=== PATIENT | male | born 1980 | race Caucasian/White ===

== ENCOUNTER 2016-09-06 12:52 | Emergency (ER) | payer BC, MEDICAID ==
--- NOTE | 2016-09-06 13:27 | EDM.PDOC ---
ED HPI Trauma - General Chief Complaint: Upper Extremity Injury/Pain Stated Complaint: LEFT HAND PAIN, HAD SURGERY 09/03/16 Time Seen by Provider: 09/06/16 12:52 Source: Reports: Patient History Limitations: Reports: No limitations - History of Present Illness INITIAL COMMENTS - FREE TEXT/NARRATIVE: 36 years old w m s/p carpal tunnel surgery last thursday08/06/2016, came to the ed due to severe left wrist pain. Pt used all meds which were prescribed to him and motrin every 6 hours. He did not elevate his left arm and did not apply ice onto his wrist. Pt denies any other acute medical issues at this time. Symptom Onset Date: 09/05/16 Symptom Onset Time: 15:00 Occurred When: yesterday Occurred Where: home Method of Injury: other (s/p surgery) Severity: moderate Pain/Injury Location: Reports: upper extremity, left Consciousness: Reports: no loss of consciousness Associated Symptoms: Reports: denies other symptoms Allergies/ADRs: Allergies cefaclor [From Ceclor] Allergy (Verified 09/06/16 13:05) Hives NSAIDS (Non-Steroidal Anti-Inflamma Allergy (Verified 09/06/16 13:05) Stomach Upset venom-honey bee [bee venom (honey bee)] Allergy (Verified 09/06/16 13:05) Anaphylactic Shock Home Medications: Ambulatory Orders Lisinopril/Hydrochlorothiazide [Lisinopril-Hctz 10-12.5 mg Tab] 1 tab PO BID [Confirmed 09/06/16] Hydrocodone/Acetaminophen [Vicodin 5-300 mg Tablet] 1 each PO Q6HR PRN #16 tablet 05/29/16 [Confirmed 09/06/16] Orphenadrine [Norflex] 100 mg PO BID PRN #20 tab.er 05/29/16 [Confirmed 09/06/16 ] amLODIPine [Norvasc] 5 mg PO BID 05/29/16 [Confirmed 09/06/16] oxyCODONE HCl/Acetaminophen [Percocet 5-325 mg Tablet] 1 each PO Q6HR PRN #12 tablet 09/06/16 Past Medical History - Past Health History Medical/Surgical History: Denies Medical/Surgical History HEENT History: Reports: Impaired vision Cardiovascular History: Reports: Hypertension Respiratory History: Reports: Asthma Gastrointestinal History: Reports: None Genitourinary History: Reports: None Other Musculoskeletal History: should dislocation; DISGENERATIVE DISC DISEASE Neurological History: Reports: Other (see below) Other Neuro History: DEGENERATIVE DISC DISEASE Psychiatric History: Reports: None Endocrine/Metabolic History: Reports: None Hematologic History: Reports: None Immunologic History: Reports: None Oncologic (Cancer) History: Reports: None Dermatologic History: Reports: None - Infectious Disease History Infectious Disease History: Reports: Chicken pox, Influenza - Past Surgical History Head Surgeries/Procedures: Reports: None HEENT Surgical History: Reports: Other (see below) Other HEENT Surgeries/Procedures: PROSTHETIC LENS WHEN 18 YO. Musculoskeletal Surgical History: Reports: Shoulder replacement, Shoulder surgery Social & Family History - Family History Family Medical History: Noncontributory - Tobacco Use Smoking Status *Q: Current Every Day Smoker Years of Tobacco use: 15 Packs/Tins Daily: 1 Used Tobacco, but Quit: No Second Hand Smoke Exposure: Yes - Caffeine Use Caffeine Use: Reports: Coffee, Soda - Alcohol Use Days Per Week of Alcohol Use: 0 - Recreational Drug Use Recreational Drug Use: No Drug Use in Last 12 Months: Yes Recreational Drug Type: Reports: Marijuana/Hashish Recreational Drug Use Frequency: Daily - Living Situation & Occupation Living situation: Reports: Review of Systems - Review of Systems Review Of Systems: See Below Constitutional: Reports: no symptoms Eyes: Reports: no symptoms Ears: Reports: no symptoms Nose: Reports: no symptoms Mouth/Throat: Reports: no symptoms Respiratory: Reports: No Symptoms Cardiovascular: Reports: no symptoms GI/Abdominal: Reports: No symptoms Genitourinary: Reports: no symptoms Musculoskeletal: Reports: joint pain (left wrist) Skin: Reports: no symptoms Neurological: Reports: No Symptoms Psychiatric: Reports: no symptoms Trauma Exam - Physical Exam Exam: See Below Exam Limited By: No limitations General Appearance: Reports: alert, WD/WN, mild distress, obese Head: Reports: atraumatic, normocephalic Eyes: bilateral eye: normal inspection Ears: Reports: normal external exam Nose: Reports: normal inspection, normal mucousa, no blood Throat/Mouth: Reports: Normal inspection, Normal lips, Normal teeth, Normal gums , Normal oropharynx, Normal voice Neck: Reports: non-tender, full range of motion, normal alignment, normal inspection Respiratory Exam: Reports: no respiratory distress, lungs clear, normal breath sounds Cardiovascular: Reports: normal peripheral pulses, regular rate, rhythm, no edema, no gallop, no JVD, no murmur GI/Abdominal: Reports: normal bowel sounds, soft, non tender, no organomegaly (Male) Exam: Deferred Rectal (Males) Exam: Deferred Back: Reports: full range of motion, normal inspection, non-tender Extremities: Reports: no evidence of injury Neurologic: Reports: rope walker II-XII nml as tested, no motor/sensory deficits Skin: Reports: Normal color, Warm/dry, Cyanosis, Other (well healing surgical scar) - [place] Coma Score Best Eye Response (Brock): (4) open spontaneously Best Verbal Response ([place]): (5) oriented Best Motor Response (Brock): (6) obeys commands Brock Total: 15 Course - Vital Signs Text/Narrative:: 36 years old w m s/p carpal tunnel surgery last thursday08/06/2016, came to the ed due to severe left wrist pain. Pt used all meds which were prescribed to him and motrin every 6 hours. He did not elevate his left arm and did not apply ice onto his wrist. Pt denies any other acute medical issues at this time. PE: Left wrist , well healing surgical wound. Mild edema, No loss of function. Impression: Well healing surgical wound. Consultation: Shimon Sotourgeon: Ice, rest, elevation f/u thursday Plan: D/C with instructions. Last Recorded V/S: Last Vital Signs Temp 36.8 C 09/06/16 13:05 Pulse 95 09/06/16 13:05 Resp 16 09/06/16 13:05 BP 156/94 H 09/06/16 13:05 Pulse Ox 97 09/06/16 13:05 Departure - Departure Time of Disposition: 13:32 Disposition: Home, Self-Care 01 Condition: good Clinical Impression: Carpal tunnel syndrome of left wrist Prescriptions: oxyCODONE HCl/Acetaminophen [Percocet 5-325 mg Tablet] 1 each PO Q6HR PRN #12 tablet PRN Reason: severe pain only Referrals: Jose Dos Santos MD [Primary Care Provider] - Forms: ED Department Discharge Additional Instructions: Ice, rest and elevation, please use [place]ling, please take the meds as prescribed , Please take motrin every 6-8 hours, please follow up with the [facility] on thursday, plealena come back to the ed if the symptoms get worse acutely
[2016-09-06 13:30] VITALS: BP 156/94
== END 2016-09-06 13:49 | disposition home or self-care (01) ==
LOC: FB.ED 12:52
DX: G56.02 Carpal tunnel syndrome, left upper limb (principal); I10 Essential (primary) hypertension; J45.909 Unspecified asthma, uncomplicated; F17.210 Nicotine dependence, cigarettes, uncomplicated; Z88.8 Allergy status to other drugs, medicaments and biological substances; Z91.030 Bee allergy status
CPT/HCPCS: 99283

== ENCOUNTER 2016-12-05 14:31 | Emergency (ER) | payer BC, MEDICAID ==
[2016-12-05] MEDS ORDERED: HYDROmorphone 2 MG/ML SDV IM ONE (15:06)
[2016-12-05] MEDS ORDERED: Ondansetron 4 MG Tab.DIS PO SCH (15:15)
[2016-12-05 15:33] VITALS: BP 137/79
--- NOTE | 2016-12-05 16:17 | CT ---
INDICATION: Right flank - mid right side pain x1 month on and off. CT ABDOMEN AND PELVIS WITHOUT CONTRAST: Spiral 1.25-mm axial sections were obtained through the abdomen and pelvis with renal calculus protocol, including sagittal and coronal reconstructions, 12/05/2016. No comparisons were available. Total Exam DLP = 2164.13 mGy-cm. The lower lung garcia and pleural spaces visualized appeared normal. The liver had a normal appearance. The gallbladder is contracted in appearance, compatible with a recent contraction due to a meal - correlate clinically. There is material within the stomach to suggest a recent meal. The common bile duct does not appear enlarged. The adrenal glands appeared normal. The spleen and pancreas appear normal. No evidence of renal calcinosis is noted. No definite renal masses were identified. There is, however, a poorly differentiated area of decreased density in the lower pole of the right kidney. This finding may represent an angiomyolipoma. Contrast CT or MRI may be helpful for further evaluation in that regard. No other renal masses were suggested. No evidence of renal calcinosis or obstructive uropathy was seen, with course and caliber of the ureters appearing normal. The appendix is visualized on axial images #260 through #298 and had a normal appearance. No evidence of appendicitis was seen. No evidence of bowel obstruction was noted. The urinary bladder is almost empty and appeared grossly normal. No intraluminal vesicular calculi were seen. The prostate appeared normal in size. No additional mass lesions, organomegaly, or free fluid collections were identified in the abdomen or pelvis. IMPRESSION: 1. Area of decreased density in the lower pole of the right kidney measuring approximately 22.8 mm. It is low in density and may represent an angiomyolipoma. Ultrasound and, if necessary, contrast-enhanced CT are recommended for further evaluation. 2. No evidence of renal calculi or obstructive uropathy. 3. Contracted gallbladder likely on the basis of recent meal - correlate clinically. No definite calculi are seen, however, ultrasound may be helpful for confirmation, as felt to be clinically necessary. 4. Normal appearing appendix. CT PELVIS: Examination of the pelvis was obtained by CT, as noted above, and revealed no organomegaly, mass lesions, or free fluid collections. No evidence of bowel obstruction was seen. There are a few phleboliths in the lower pelvis. No organomegaly, mass lesions, or free fluid collections were identified in the pelvis. Normal appearing appendix is noted. A minimal calcification is noted in the left iliac artery. IMPRESSION: Essentially normal pelvic CT. Report was called to Dr. Prajapati at 1555 hours, 12/05/2016. [facility]
[2016-12-05] MEDS ORDERED: Iopamidol 755 MG/ML 150 ML Bottle IV ONE (16:26)
[2016-12-05] MEDS ORDERED: Ketorolac 30 MG/ML SDV IVPUSH ONE (16:58)
[2016-12-05] MEDS ORDERED: HYDROmorphone 2 MG/ML SDV IVPUSH ONE (17:44)
[2016-12-05] MEDS ORDERED: Acetaminophen/oxyCODONE 325-5 MG Tab PO ONE (18:43)
--- NOTE | 2016-12-08 09:26 | CT ---
INDICATION: Question pyelonephritis versus cyst lower pole right kidney. CT ABDOMEN AND PELVIS WITH CONTRAST: Spiral 2.5-mm axial sections were obtained through the abdomen and pelvis with 149 mL Isovue-370 at 3 mL per second with sagittal and coronal reconstructions, 12/05/2016, and compared with a non-contrast study of the same date. Total Exam DLP = 1392.94 mGy-cm. The kidneys showed normal uptake of contrast bilaterally with no evidence of obstructive uropathy. At the lower pole of the right kidney, the area of low-density seen on non- contrast CT is compatible with a benign cystic structure measuring approximately 2 cm. No other kidney lesions were identified. The upper abdominal organs were otherwise unremarkable. No organomegaly, mass lesions, or free fluid collections were identified in the abdomen or pelvis. No evidence of bowel obstruction was seen. No evidence of inflammatory process was suggested. The appendix was unremarkable. IMPRESSION: 1. Benign appearing cyst 2 cm lower pole right kidney. No evidence of pyelonephritis noted. 2. CT abdomen and pelvis otherwise unremarkable. CT PELVIS: Examination of the pelvis was obtained by CT, revealing no contrast enhancing pathology. Report was called to Dr. Prajapati at 1732 hours, 12/05/2016. [facility]
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
== END 2016-12-05 18:50 | disposition home or self-care (01) ==
LOC: FB.ED 14:31
DX: M79.1 Myalgia (principal); R07.82 Intercostal pain; M54.6 Pain in thoracic spine; R31.9 Hematuria, unspecified; E66.9 Obesity, unspecified; I10 Essential (primary) hypertension; Z88.1 Allergy status to other antibiotic agents; Z88.8 Allergy status to other drugs, medicaments and biological substances; Z91.030 Bee allergy status; Z98.890 Other specified postprocedural states; Z68.38 Body mass index [BMI] 38.0-38.9, adult
CPT/HCPCS: 36415; 74178; 80053; 81001; 83605; 85025; 86140; 96372; 96374; 96375; 99284; A9270; J1170; J1885; Q9967; 74176; 74177

== ENCOUNTER 2017-03-26 20:29 | Emergency (ER) | payer BC, OTHER ==
[2017-03-26] MEDS ORDERED: HYDROmorphone 2 MG/ML SDV IM ONE (20:44)
[2017-03-26 21:39] VITALS: BP 145/87
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
== END 2017-03-26 21:35 | disposition home or self-care (01) ==
LOC: FB.ED 20:29
DX: S69.92XA Unspecified injury of left wrist, hand and finger(s), initial encounter (principal); V49.9XXA Car occupant (driver) (passenger) injured in unspecified traffic accident, initial encounter
CPT/HCPCS: 73140; 96372; 99283; J1170

== ENCOUNTER 2017-11-06 08:01 | Emergency (ER) | payer SELFPAY ==
[2017-11-06] MEDS: HYDROmorphone 2 MG/ML SDV IM ONE ×2 (09:38→10:42)
[2017-11-06] MEDS: Metoclopramide 10 MG Tab PO ONE (09:39)
[2017-11-06 11:22] VITALS: BP 136/78
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
== END 2017-11-06 12:10 | disposition home or self-care (01) ==
LOC: FB.ED 08:01
DX: M23.92 Unspecified internal derangement of left knee (principal); S86.912A Strain of unspecified muscle(s) and tendon(s) at lower leg level, left leg, initial encounter; F17.200 Nicotine dependence, unspecified, uncomplicated; E66.9 Obesity, unspecified; M54.5 Low back pain; G89.29 Other chronic pain; Z88.8 Allergy status to other drugs, medicaments and biological substances; Z91.030 Bee allergy status; Z98.890 Other specified postprocedural states; X58.XXXA Exposure to other specified factors, initial encounter
CPT/HCPCS: 73562-LT; 73610-LT; 96372; 99283; A9270-GY; J1170

== ENCOUNTER 2017-11-19 01:37 | Emergency (ER) | payer SELFPAY ==
[2017-11-19] MEDS ORDERED: HYDROmorphone 2 MG/ML SDV IVPUSH ONE ×2 (02:02→02:56)
[2017-11-19] MEDS ORDERED: Sodium Chloride 0.9% 1,000 ML IV ONE ×2 (02:02→03:21)
[2017-11-19] MEDS ORDERED: Metoclopramide 10 MG/2 ML SDV IVPUSH ONE (02:03)
[2017-11-19 02:20] VITALS: BP 152/95
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
--- NOTE | 2017-11-23 09:24 | ER ---
DATE SEEN: 11/19/2017 ADDENDUM: Yesterday, when speaking to the patient, there was some concern he may have angiomyolipoma in the kidney, as per previous CT evaluation. This was reviewed with Dr. Simental today, radiologist, and he said this was benign. After further comparison, the structure has a fluid-filled base, so it is only a benign cyst and further studies are not warranted. If he still has persistent pain, of course, he needs to follow up with his doctor. /[id number] CHACHO/KERI
== END 2017-11-19 03:50 | disposition home or self-care (01) ==
LOC: FB.ED 01:37
DX: R10.9 Unspecified abdominal pain (principal); R31.9 Hematuria, unspecified; E66.9 Obesity, unspecified; F17.210 Nicotine dependence, cigarettes, uncomplicated; J45.909 Unspecified asthma, uncomplicated; I10 Essential (primary) hypertension; G21.9 Secondary parkinsonism, unspecified; K30 Functional dyspepsia; M54.2 Cervicalgia; Z68.39 Body mass index [BMI] 39.0-39.9, adult; Z79.890 Hormone replacement therapy; Z91.09 Other allergy status, other than to drugs and biological substances; Z88.1 Allergy status to other antibiotic agents
CPT/HCPCS: 36415; 74176; 80053; 80305; 81001; 85025; 96361; 96374; 96375; 96376; 99284; J1170; J2765; J7030

== ENCOUNTER 2017-11-23 07:36 | Emergency (ER) | payer OTHER ==
--- NOTE | 2017-11-23 07:56 | EDM.PDOC ---
ED HPI GENERAL MEDICAL PROBLEM - General Chief Complaint: Genitourinary Problem Stated Complaint: LEFT KIDNEY PAIN Time Seen by Provider: 11/23/17 07:36 Source of Information: Reports: Patient History Limitations: Reports: No Limitations - History of Present Illness INITIAL COMMENTS - FREE TEXT/NARRATIVE: 37 y.o.w.m came to the ed with left flank pain. Pt was seen here in the ed for same several times when CTs and MRIs were all neg. Pt denied trauma but was requesting Dilaudid. Pt was ambulating fine but holding his "left flank". No N/V /D or any other acute medical issues. BP 154/93 pulse 72 RR 20 Pulse ox 94% on RA temp 36.6 Onset Date: 11/19/17 Onset Time: 07:00 Duration: Day(s): Location: Reports: Back Quality: Reports: Ache Severity: Moderate Improves with: Reports: Cold Therapy, Medication Worsens with: Reports: Movement Associated Symptoms: Reports: Other (left flank pain) Left Back Pain Score (Numeric/FACES): 9 - Related Data Allergies Allergy/AdvReac Type Severity Reaction Status Date / Time cefaclor [From Ceclor] Allergy Hives Verified 11/19/17 02:16 venom-honey bee Allergy Anaphylactic Verified 11/19/17 02:16 [bee venom (honey bee)] Shock NSAIDS (Non-Steroidal AdvReac Stomach Verified 11/19/17 02:16 Anti-Inflamma Upset Home Meds: Home Meds Lisinopril/Hydrochlorothiazide [Lisinopril-Hctz 10-12.5 mg Tab] 1 tab PO DAILY 03/24/16 [History] amLODIPine [Norvasc] 10 mg PO DAILY 05/29/16 [History] Fish Oil/[place]-3 Fatty Acids [Fish Oil 1,000 MG] 500 mg PO BID 11/23/17 [History ] traMADol [Ultram] 50 mg PO Q4H PRN #8 tab 11/23/17 [Rx] Past Medical History - Past Health History Medical/Surgical History: Denies Medical/Surgical History HEENT History: Reports: Impaired Vision Other HEENT History: wears glasses Cardiovascular History: Reports: Hypertension Respiratory History: Reports: Asthma Gastrointestinal History: Reports: None Genitourinary History: Reports: Renal Calculus Other Musculoskeletal History: should dislocation; DISGENERATIVE DISC DISEASE Neurological History: Reports: Other (See Below) Other Neuro History: DEGENERATIVE DISC DISEASE Psychiatric History: Reports: None Endocrine/Metabolic History: Reports: Obesity/BMI 30+ Hematologic History: Reports: None Immunologic History: Reports: None Oncologic (Cancer) History: Reports: None Dermatologic History: Reports: None - Infectious Disease History Infectious Disease History: Reports: Chicken Pox, Influenza - Past Surgical History Head Surgeries/Procedures: Reports: None HEENT Surgical History: Reports: Eye Surgery Other HEENT Surgeries/Procedures: Lens removal et implant as a young kid Musculoskeletal Surgical History: Reports: Carpal Tunnel, Shoulder Replacement, Shoulder Surgery Social & Family History - Family History Family Medical History: Noncontributory - Caffeine Use Caffeine Use: Reports: Coffee, Soda - Living Situation & Occupation Living situation: Reports: ED ROS GENERAL - Review of Systems Review Of Systems: See Below Constitutional: Reports: No Symptoms HEENT: Reports: No Symptoms Respiratory: Reports: No Symptoms Cardiovascular: Reports: No Symptoms Endocrine: Reports: No Symptoms GI/Abdominal: Reports: No Symptoms : Reports: Flank Pain Musculoskeletal: Reports: Back Pain Skin: Reports: No Symptoms Neurological: Reports: No Symptoms Psychiatric: Reports: No Symptoms Hematologic/Lymphatic: Reports: No Symptoms Immunologic: Reports: No Symptoms ED EXAM, RENAL/ - Physical Exam Exam: See Below Exam Limited By: No Limitations General Appearance: Alert, WD/WN, Mild Distress, Obese Eye Exam: Bilateral Eye: Normal Inspection Ears: Normal External Exam Nose: Normal Inspection, Normal Mucosa, No Blood Throat/Mouth: Normal Inspection, Normal Lips Head: Atraumatic, Normocephalic Neck: Normal Inspection, Supple, Non-Tender, Full Range of Motion Respiratory/Chest: No Respiratory Distress, Lungs Clear, Normal Breath Sounds, No Accessory Muscle Use Cardiovascular: Normal Peripheral Pulses, Regular Rate, Rhythm, No Edema, No Gallop, No JVD, No Murmur, No Rub GI/Abdominal: Normal Bowel Sounds, Soft, Non-Tender, No Organomegaly, No Distention, No Abnormal Bruit, No Mass (Male) Exam: Deferred Rectal (Males) Exam: Deferred Back Exam: Normal Inspection, Full Range of Motion Extremities: Normal Inspection, Normal Range of Motion, Non-Tender, No Pedal Edema, Normal Capillary Refill Neurological: Alert, Oriented, CN II-XII Intact, Normal Cognition, Normal Gait, No Motor/Sensory Deficits Psychiatric: Normal Affect, Normal Mood Skin Exam: Warm, Dry, Intact, Normal Color, No Rash Lymphatic: No Adenopathy Course - Vital Signs Text/Narrative:: 37 y.o.w.m came to the ed with left flank pain. Pt was seen here in the ed for same several times when CTs and MRIs were all neg. Pt denied trauma but was requesting Dilaudid. Pt was ambulating fine but holding his "left flank". No N/V /D or any other acute medical issues. BP 154/93 pulse 72 RR 20 Pulse ox 94% on RA temp 36.6 PE: WNWD W M with left flank pain. Nl Staight leg rising test. Imaging: CT Abd/pelvis NEG Labs: UDS pos for benzos and Marijuana. UA pos for micr. hematuria Impressin: Microscopic hematuria. left flank pain Tx: Toradol/ Ice Reexam: Improved 9.18 am Consultation: Dr. Schmidt, will arranges transfer to [facility] Therapist/ urologist Plan: D/C with instructions Last Recorded V/S: Last Vital Signs Temp 36.7 C 11/23/17 08:57 Pulse 61 11/23/17 08:57 Resp 20 11/23/17 08:57 BP 145/92 H 11/23/17 08:57 Pulse Ox 94 L 11/23/17 08:57 - Orders/Labs/Meds Orders: Active Orders 24 hr Category Date Time Status Cooling Warming Measures [RC] ASDIRECTED Care 11/23/17 07:56 Active Abdomen Pelvis wo Cont [CT] Stat Exams 11/23/17 08:27 Taken DRUG SCREEN, URINE ALERE [URCHEM] Stat Lab 11/23/17 08:02 Ordered UA W/MICROSCOPIC [URIN] Stat Lab 11/23/17 08:02 Ordered Ice Therapy [OM.PC] Routine Oth 11/23/17 07:56 Ordered Labs: Laboratory Tests 11/23/17 11/23/17 11/23/17 Range/Units 08:02 08:02 08:13 WBC 6.5 (4.5-12.0) X10-3/uL RBC 5.08 (4.30-5.75) x10(6)uL Hgb 15.9 H (11.5-15.5) g/dL Hct 46.7 (30.0-51.3) % MCV 92.0 (80-96) fL MCH 31.2 (27.7-33.6) pg MCHC 33.9 (32.2-35.4) g/dL RDW 12.3 (11.5-15.5) % Plt Count 194 (125-369) X10(3)uL MPV 7.5 (7.4-10.4) fL Neut % (Auto) 54.0 (46-82) % Lymph % (Auto) 32.1 (13-37) % O'Brien % (Auto) 9.3 (4-12) % Eos % (Auto) 4 (1.0-5.0) % Baso % (Auto) 1 (0-2) % Neut # (Auto) 3.5 (1.6-8.3) # Lymph # (Auto) 2.1 (0.6-5.0) # O'Brien # (Auto) 0.6 (0.0-1.3) # Eos # (Auto) 0.2 (0.0-0.8) # Baso # (Auto) 0.1 (0.0-0.2) # Sodium (135-145) mmol/L Potassium (3.5-5.3) mmol/L Chloride (100-110) mmol/L Carbon Dioxide (21-32) mmol/L BUN (7-18) mg/dL Creatinine (0.70-1.30) mg/dL Est Cr Clr Drug Dosing mL/min Estimated GFR (MDRD) (>60) BUN/Creatinine Ratio (9-20) Glucose (80-116) mg/dL Calcium (8.6-10.2) mg/dL Urine Color Yellow (YELLOW) Urine Appearance Clear (CLEAR) Urine pH 5.0 (5.0-6.5) Ur Specific [place] 1.020 (1.010-1.025) Urine Protein Negative (NEGATIVE) mg/dL Urine Glucose (UA) Normal (NEGATIVE) mg/dL Urine Ketones Negative (NEGATIVE) mg/dL Urine Occult Blood Large H (NEGATIVE) Urine Nitrite Negative (NEGATIVE) Urine Bilirubin Negative (NEGATIVE) Urine Urobilinogen Normal (NEGATIVE) mg/dL Ur Leukocyte Esterase Negative (NEGATIVE) Urine RBC 20-30 H (0) Urine WBC 0-5 (0) Ur Squamous Epith Cells Few H (NS,R,O) Urine Bacteria Few H (NS) Urine Opiates Screen Negative (NEGATIVE) Ur Oxycodone Screen Negative (NEGATIVE) Ur Propoxyphene Screen Negative (NEGATIVE) Ur Barbituates Screen Negative (NEGATIVE) Ur Tricyclics Screen Negative (NEGATIVE) Ur Phencyclidine Scrn Negative (NEGATIVE) Ur Amphetamine Screen Negative (NEGATIVE) Urine MDMA Screen Negative (NEGATIVE) U Benzodiazepines Scrn Positive H (NEGATIVE) U Cocaine Metab Screen Negative (NEGATIVE) U Marijuana (THC) Screen Positive H (NEGATIVE) Ethyl Alcohol (<0.03) % 11/23/17 11/23/17 Range/Units 08:13 08:13 WBC (4.5-12.0) X10-3/uL RBC (4.30-5.75) x10(6)uL Hgb (11.5-15.5) g/dL Hct (30.0-51.3) % MCV (80-96) fL MCH (27.7-33.6) pg MCHC (32.2-35.4) g/dL RDW (11.5-15.5) % Plt Count (125-369) X10(3)uL MPV (7.4-10.4) fL Neut % (Auto) (46-82) % Lymph % (Auto) (13-37) % O'Brien % (Auto) (4-12) % Eos % (Auto) (1.0-5.0) % Baso % (Auto) (0-2) % Neut # (Auto) (1.6-8.3) # Lymph # (Auto) (0.6-5.0) # O'Brien # (Auto) (0.0-1.3) # Eos # (Auto) (0.0-0.8) # Baso # (Auto) (0.0-0.2) # Sodium 138 (135-145) mmol/L Potassium 4.0 (3.5-5.3) mmol/L Chloride 103 (100-110) mmol/L Carbon Dioxide 31 (21-32) mmol/L BUN 13 (7-18) mg/dL Creatinine 1.0 (0.70-1.30) mg/dL Est Cr Clr Drug Dosing 118.73 mL/min Estimated GFR (MDRD) > 60 (>60) BUN/Creatinine Ratio 13.0 (9-20) Glucose 97 (80-116) mg/dL Calcium 8.9 (8.6-10.2) mg/dL Urine Color (YELLOW) Urine Appearance (CLEAR) Urine pH (5.0-6.5) Ur Specific [place] (1.010-1.025) Urine Protein (NEGATIVE) mg/dL Urine Glucose (UA) (NEGATIVE) mg/dL Urine Ketones (NEGATIVE) mg/dL Urine Occult Blood (NEGATIVE) Urine Nitrite (NEGATIVE) Urine Bilirubin (NEGATIVE) Urine Urobilinogen (NEGATIVE) mg/dL Ur Leukocyte Esterase (NEGATIVE) Urine RBC (0) Urine WBC (0) Ur Squamous Epith Cells (NS,R,O) Urine Bacteria (NS) Urine Opiates Screen (NEGATIVE) Ur Oxycodone Screen (NEGATIVE) Ur Propoxyphene Screen (NEGATIVE) Ur Barbituates Screen (NEGATIVE) Ur Tricyclics Screen (NEGATIVE) Ur Phencyclidine Scrn (NEGATIVE) Ur Amphetamine Screen (NEGATIVE) Urine MDMA Screen (NEGATIVE) U Benzodiazepines Scrn (NEGATIVE) U Cocaine Metab Screen (NEGATIVE) U Marijuana (THC) Screen (NEGATIVE) Ethyl Alcohol < 0.03 (<0.03) % Meds: Medications Discontinued Medications Generic Name Dose Route Start Last Admin Trade Name Freq PRN Reason Stop Dose Admin Ketorolac Tromethamine 60 mg 11/23/17 08:25 11/23/17 08:29 Toradol IM 11/23/17 08:26 60 mg ONETIME ONE Administration Departure - Departure Time of Disposition: 09:14 Disposition: Home, Self-Care 01 Condition: Good Clinical Impression: Flank pain Back pain Qualifiers: Back pain location: low back pain Chronicity: unspecified Back pain laterality : left Sciatica presence: without sciatica Qualified Code(s): M54.5 - Low back pain Hematuria Qualifiers: Hematuria type: other microscopic Qualified Code(s): R31.29 - Other microscopic hematuria - Discharge Information Prescriptions: traMADol [Ultram] 50 mg PO Q4H PRN #8 tab PRN Reason: severe pain only Instructions: Tramadol tablets, Back Pain, Adult, Szvd-ys-Lyew, Hematuria, Adult Referrals: Jose Dos Santos MD [Primary Care Provider] - Forms: ED Department Discharge Additional Instructions: Please f/u with your PMD, apply ice to lower back, tylenol/ultram for pain as recommended, [id number] come back if your symptoms get worse acutely - My Orders Last 24 Hours: My Active Orders 11/23/17 07:56 Cooling Warming Measures [RC] ASDIRECTED Ice Therapy [OM.] Routine 11/23/17 08:02 DRUG SCREEN, URINE ALERE [URCHEM] Stat UA W/MICROSCOPIC [URIN] Stat 11/23/17 08:27 Abdomen Pelvis wo Cont [CT] Stat - Assessment/Plan Last 24 Hours: My Active Orders 11/23/17 07:56 Cooling Warming Measures [RC] ASDIRECTED Ice Therapy [OM.PC] Routine 11/23/17 08:02 DRUG SCREEN, URINE ALERE [URCHEM] Stat UA W/MICROSCOPIC [URIN] Stat 11/23/17 08:27 Abdomen Pelvis wo Cont [CT] Stat
[2017-11-23] MEDS ORDERED: Ketorolac 60 MG/2 ML SDV IM ONE (08:25)
[2017-11-23 09:05] VITALS: BP 145/92
== END 2017-11-23 09:26 | disposition home or self-care (01) ==
LOC: FB.ED 07:36
DX: R31.29 Other microscopic hematuria (principal); M54.5 Low back pain; I10 Essential (primary) hypertension; J45.909 Unspecified asthma, uncomplicated; Z88.1 Allergy status to other antibiotic agents; Z91.030 Bee allergy status; Z79.899 Other long term (current) drug therapy; Z88.8 Allergy status to other drugs, medicaments and biological substances; Z87.442 Personal history of urinary calculi
CPT/HCPCS: 36415; 74176; 80048; 80305; 81001; 85025; 96372; 99284; G0480; J1885

== ENCOUNTER 2018-01-22 00:18 | Emergency (ER) | payer OTHER, SELFPAY ==
[2018-01-22] MEDS ORDERED: HYDROmorphone 2 MG/ML SDV IM ONE (00:31)
--- NOTE | 2018-01-22 00:37 | EDM.PDOC ---
ED HPI GENERAL MEDICAL PROBLEM - General Stated Complaint: RT EYE INJURY Time Seen by Provider: 01/22/18 00:20 Source of Information: Reports: Patient - History of Present Illness INITIAL COMMENTS - FREE TEXT/NARRATIVE: Dick complains of right eye pain sudden onset tonight. He complains that he cannot see anything. He has had a previous intraocular lens prostheticc(at age 12),and thinks it may have displaced tonight.. He denies any significant trauma to that eye.He has no nausea or vomiting but feels that the eyes popping out.He has not tried anything to relive the pain Onset: Today - Related Data Allergies Allergy/AdvReac Type Severity Reaction Status Date / Time cefaclor [From Ceclor] Allergy Hives Verified 01/22/18 03:30 codeine Allergy Edema Verified 01/22/18 03:30 venom-honey bee Allergy Anaphylactic Verified 01/22/18 03:30 [bee venom (honey bee)] Shock NSAIDS (Non-Steroidal AdvReac Stomach Verified 01/22/18 03:30 Anti-Inflamma Upset Home Meds: Home Meds Lisinopril/Hydrochlorothiazide [Lisinopril-Hctz 10-12.5 mg Tab] 1 tab PO DAILY 03/24/16 [History] amLODIPine [Norvasc] 10 mg PO DAILY 05/29/16 [History] Fish Oil/[place]-3 Fatty Acids [Fish Oil 1,000 MG] 500 mg PO BID 11/23/17 [History ] Past Medical History - Past Health History Medical/Surgical History: Denies Medical/Surgical History HEENT History: Reports: Impaired Vision Other HEENT History: wears glasses Cardiovascular History: Reports: Hypertension Respiratory History: Reports: Asthma Gastrointestinal History: Reports: None Genitourinary History: Reports: Renal Calculus Other Musculoskeletal History: should dislocation; DISGENERATIVE DISC DISEASE Neurological History: Reports: Other (See Below) Other Neuro History: DEGENERATIVE DISC DISEASE Psychiatric History: Reports: None Endocrine/Metabolic History: Reports: Obesity/BMI 30+ Hematologic History: Reports: None Immunologic History: Reports: None Oncologic (Cancer) History: Reports: None Dermatologic History: Reports: None - Infectious Disease History Infectious Disease History: Reports: Chicken Pox, Influenza - Past Surgical History Head Surgeries/Procedures: Reports: None HEENT Surgical History: Reports: Eye Surgery Other HEENT Surgeries/Procedures: Lens removal et implant as a young kid Musculoskeletal Surgical History: Reports: Carpal Tunnel, Shoulder Replacement, Shoulder Surgery Social & Family History - Family History Family Medical History: Noncontributory - Caffeine Use Caffeine Use: Reports: Coffee, Soda Caffeine Use Comment: 24oz coffee per day and approximately 1 pop per day as well. - Living Situation & Occupation Living situation: Reports: ED ROS GENERAL - Review of Systems Review Of Systems: ROS reveals no pertinent complaints other than HPI. ED EXAM GENERAL W FULL EYE - Physical Exam Exam: See Below Exam Limited By: Uncooperative (Unable to allwo exam due to "pain") General Appearance: Anxious With Correction: Yes Eyelids: Left: Normal Appearance Pupillary Reaction: Right: Brisk Anterior Chamber: Right: Other (Dark irregular body ) Posterior Chamber: Right: Unable to Examine Ears: Normal External Exam, Normal [place] - Vital Signs Text/Narrative:: Dilaudid helped some Last Recorded V/S: Last Vital Signs Temp 97.8 F 01/22/18 00:25 Pulse 81 01/22/18 00:25 Resp 18 01/22/18 00:25 BP 150/86 H 01/22/18 00:25 Pulse Ox 98 01/22/18 00:25 - Orders/Labs/Meds Meds: Medications Discontinued Medications Generic Name Dose Route Start Last Admin Trade Name Chuckie PRN Reason Stop Dose Admin Hydromorphone HCl 2 mg 01/22/18 00:31 01/22/18 00:50 Dilaudid IM 01/22/18 00:32 2 mg ONETIME ONE Administration Departure - Departure Time of Disposition: 00:45 Disposition: Home, Self-Care 01 Clinical Impression: Iritis - Discharge Information Instructions: Hydromorphone injection Referrals: Jose Dos Santos MD [Primary Care Provider] - Forms: ED Department Discharge Care Plan Goals: Follow up with your eye doctor in the morning. - Problem List & Annotations (1) Eye pain SNOMED Code(s): 04858810 Code(s): H57.10 - OCULAR PAIN, UNSPECIFIED EYE Status: Acute Qualifiers: Laterality: right Qualified Code(s): H57.11 - Ocular pain, right eye - Problem List Review Problem List Initiated/Reviewed/Updated: Yes - Assessment/Plan Plan: Dilaudid IM,offered transfer to [place] ED for opthalmology consult,patient admantly declined. DC home,follow with Optometry in AM
[2018-01-22 03:35] VITALS: BP 150/86
== END 2018-01-22 01:05 | disposition home or self-care (01) ==
LOC: FB.ED 00:18
DX: H20.9 Unspecified iridocyclitis (principal); I10 Essential (primary) hypertension; E66.9 Obesity, unspecified; Z88.8 Allergy status to other drugs, medicaments and biological substances; Z91.030 Bee allergy status; Z88.5 Allergy status to narcotic agent; Z79.899 Other long term (current) drug therapy
CPT/HCPCS: 96372; 99282; J1170

== ENCOUNTER 2018-02-15 13:30 | Emergency (ER) | payer SELFPAY ==
--- NOTE | 2018-02-15 13:49 | EDM.PDOC ---
ED HPI GENERAL MEDICAL PROBLEM - General Chief Complaint: Eye Problems Stated Complaint: EYE ISSUE Time Seen by Provider: 02/15/18 13:44 Source of Information: Reports: Patient History Limitations: Reports: No Limitations - History of Present Illness INITIAL COMMENTS - FREE TEXT/NARRATIVE: Patient presents with pain, pressure and redness to right eye since this morning. Status post retinal detachment surgery right eye at [facility] 2 weeks ago. 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 Complains of cough x 2 days. Onset: Today, Sudden Onset Date: 02/15/18 Onset Time: 13:46 Quality: Reports: Ache Severity: Moderate - Related Data Allergies Allergy/AdvReac Type Severity Reaction Status Date / Time cefaclor [From Ceclor] Allergy Hives Verified 01/22/18 03:30 codeine Allergy Edema Verified 01/22/18 03:30 venom-honey bee Allergy Anaphylactic Verified 01/22/18 03:30 [bee venom (honey bee)] Shock NSAIDS (Non-Steroidal AdvReac Stomach Verified 01/22/18 03:30 Anti-Inflamma Upset Home Meds: Home Meds Lisinopril/Hydrochlorothiazide [Lisinopril-Hctz 10-12.5 mg Tab] 1 tab PO DAILY 03/24/16 [History] amLODIPine [Norvasc] 10 mg PO DAILY 05/29/16 [History] Fish Oil/[place]-3 Fatty Acids [Fish Oil 1,000 MG] 500 mg PO BID 11/23/17 [History ] Past Medical History HEENT History: Reports: Impaired Vision Other HEENT History: wears glasses Cardiovascular History: Reports: Hypertension Respiratory History: Reports: Asthma Gastrointestinal History: Reports: None Genitourinary History: Reports: Renal Calculus Other Musculoskeletal History: should dislocation; DISGENERATIVE DISC DISEASE Neurological History: Reports: Other (See Below) Other Neuro History: DEGENERATIVE DISC DISEASE Psychiatric History: Reports: None Endocrine/Metabolic History: Reports: Obesity/BMI 30+ Hematologic History: Reports: None Immunologic History: Reports: None Oncologic (Cancer) History: Reports: None Dermatologic History: Reports: None - Infectious Disease History Infectious Disease History: Reports: Chicken Pox, Influenza - Past Surgical History Head Surgeries/Procedures: Reports: None HEENT Surgical History: Reports: Eye Surgery Other HEENT Surgeries/Procedures: Lens removal et implant as a young kid. Retinal detachment surgery @2 weeks ago. Musculoskeletal Surgical History: Reports: Carpal Tunnel, Shoulder Replacement, Shoulder Surgery Social & Family History - Family History Family Medical History: Noncontributory - Tobacco Use Smoking Status *Q: Current Every Day Smoker Tobacco Use Within Last Twelve Months: Cigarettes - Caffeine Use Caffeine Use: Reports: Coffee, Soda Caffeine Use Comment: 24oz coffee per day and approximately 1 pop per day as well. - Living Situation & Occupation Living situation: Reports: ED ROS GENERAL - Review of Systems Review Of Systems: ROS reveals no pertinent complaints other than HPI. ED EXAM GENERAL W FULL EYE - Physical Exam Exam: See Below Exam Limited By: No Limitations General Appearance: Alert, WD/WN, No Apparent Distress Eye Exam: Right Eye: Conjunctival Injection, Other (irregular, non reactive right pupil), Bilateral Eye: EOMI Eyelids: Bilateral: Normal Appearance Conjunctiva & Sclera: Right: Injected Cornea Exam: Right: Normal Appearance Extraocular Movements: Bilateral: Intact Anterior Chamber: Right: Normal Appearance Posterior Chamber: Bilateral: Unable to Examine Comments: PAT Hernandes not equipped with a slit-lamp or tonometer. Ears: Normal External Exam Nose: Normal Inspection Respiratory/Chest: No Respiratory Distress, Lungs Clear Cardiovascular: Regular Rate, Rhythm, No Murmur Course - Re-Assessments/Exams Free Text/Narrative Re-Assessment/Exam: 02/15/18 13:51 PAT Hernandes not equipped with a slit-lamp or tonometer. Will refer patient to [facility] in [facility]. Clinic contacted and appointment confirmed for @1415 today. Departure - Departure Time of Disposition: 13:52 Disposition: DC/Tfer to Other 70 Condition: Fair Clinical Impression: Acute eye pain - Discharge Information *PRESCRIPTION DRUG MONITORING PROGRAM REVIEWED*: No *COPY OF PRESCRIPTION DRUG MONITORING REPORT IN PATIENT SAM: Not Applicable Instructions: Pain Without a Known Cause Referrals: Jose Dos Santos MD [Primary Care Provider] - Forms: ED Department Discharge Additional Instructions: Follow up at [facility] in [facility] today @1418 for further care.
[2018-02-15 14:09] VITALS: BP 166/90
== END 2018-02-15 13:55 | disposition other institution (70) ==
LOC: FB.ED 13:30
DX: H57.11 Ocular pain, right eye (principal); I10 Essential (primary) hypertension; E66.9 Obesity, unspecified; Z91.030 Bee allergy status; Z88.5 Allergy status to narcotic agent; Z88.8 Allergy status to other drugs, medicaments and biological substances; Z79.899 Other long term (current) drug therapy; F17.210 Nicotine dependence, cigarettes, uncomplicated
CPT/HCPCS: 99281

== ENCOUNTER 2018-06-17 10:56 | Emergency (ER) | payer MEDICAID ==
[2018-06-17] MEDS ORDERED: Hydrochlorothiazide/Lisinopril 12.5-10 MG Tab PO ONE (11:15)
[2018-06-17] MEDS ORDERED: cloNIDine 0.1 MG Tab PO ONE (11:15)
[2018-06-17] MEDS ORDERED: amLODIPine 5 MG Tab PO ONE (11:15)
[2018-06-17] MEDS ORDERED: Ketorolac 60 MG/2 ML SDV IM ONE (11:15)
[2018-06-17] MEDS ORDERED: Ondansetron 4 MG Tab.DIS PO ONE (11:16)
--- NOTE | 2018-06-17 11:27 | EDM.PDOC ---
ED HPI GENERAL MEDICAL PROBLEM - General Chief Complaint: General Stated Complaint: TOOTH PAIN Time Seen by Provider: 06/17/18 11:00 Source of Information: Reports: Patient History Limitations: Reports: No Limitations - History of Present Illness INITIAL COMMENTS - FREE TEXT/NARRATIVE: c/o tooth pain x 2d inc'd pain, says his cheek is swollen this AM altho it appears WNL no fever had N and not able to take his 2 BP meds today, given them here after Zofran ODT 4 mg, along with clonidine 0.1 mg Tooth Pain Score (Numeric/FACES): 8 - Related Data Allergies Allergy/AdvReac Type Severity Reaction Status Date / Time cefaclor [From Ceclor] Allergy Hives Verified 06/17/18 11:02 codeine Allergy Edema Verified 06/17/18 11:02 venom-honey bee Allergy Anaphylactic Verified 06/17/18 11:02 [bee venom (honey bee)] Shock NSAIDS (Non-Steroidal AdvReac Stomach Verified 06/17/18 11:02 Anti-Inflamma Upset Home Meds: Home Meds Lisinopril/Hydrochlorothiazide [Lisinopril-Hctz 10-12.5 mg Tab] 1 tab PO DAILY 03/24/16 [History] amLODIPine [Norvasc] 10 mg PO DAILY 05/29/16 [History] Fish Oil/[place]-3 Fatty Acids [Fish Oil 1,000 MG] 500 mg PO BID 11/23/17 [History ] Azithromycin 250 mg PO DAILY #6 tablet 06/17/18 [Rx] Past Medical History HEENT History: Reports: Impaired Vision Other HEENT History: wears glasses Cardiovascular History: Reports: Hypertension Respiratory History: Reports: Asthma Gastrointestinal History: Reports: None Genitourinary History: Reports: Renal Calculus Other Musculoskeletal History: should dislocation; DISGENERATIVE DISC DISEASE Neurological History: Reports: Other (See Below) Other Neuro History: DEGENERATIVE DISC DISEASE Psychiatric History: Reports: None Endocrine/Metabolic History: Reports: Obesity/BMI 30+ Hematologic History: Reports: None Immunologic History: Reports: None Oncologic (Cancer) History: Reports: None Dermatologic History: Reports: None - Infectious Disease History Infectious Disease History: Reports: Chicken Pox, Influenza - Past Surgical History Head Surgeries/Procedures: Reports: None HEENT Surgical History: Reports: Eye Surgery Other HEENT Surgeries/Procedures: Lens removal et implant as a young kid. Retinal detachment surgery @2 weeks ago. Musculoskeletal Surgical History: Reports: Carpal Tunnel, Shoulder Replacement, Shoulder Surgery Social & Family History - Family History Family Medical History: Noncontributory - Tobacco Use Smoking Status *Q: Current Every Day Smoker Years of Tobacco use: 20 Packs/Tins Daily: 1 - Caffeine Use Caffeine Use: Reports: Coffee, Soda Caffeine Use Comment: 24oz coffee per day and approximately 1 pop per day as well. - Recreational Drug Use Recreational Drug Use: Yes Recreational Drug Type: Reports: Marijuana/Hashish Recreational Drug Use Frequency: Rarely - Living Situation & Occupation Living situation: Reports: ED ROS GENERAL - Review of Systems Review Of Systems: See Below Constitutional: Reports: No Symptoms HEENT: Reports: Dental Pain Respiratory: Reports: No Symptoms Cardiovascular: Reports: No Symptoms Endocrine: Reports: No Symptoms GI/Abdominal: Reports: No Symptoms : Reports: No Symptoms Musculoskeletal: Reports: No Symptoms Skin: Reports: No Symptoms Neurological: Reports: No Symptoms Psychiatric: Reports: No Symptoms Hematologic/Lymphatic: Reports: No Symptoms Immunologic: Reports: No Symptoms ED EXAM, GENERAL - Physical Exam Exam: See Below Exam Limited By: No Limitations General Appearance: Alert, WD/WN, Mild Distress Nose: Normal Inspection, Normal Mucosa, No Blood Throat/Mouth: Other (tooth #13 is deeply eroded, mild tender to touch dorsally, no red or swollen gingiva, no LNs, no STS) Head: Atraumatic, Normocephalic Neck: Normal Inspection, Supple, Non-Tender, Full Range of Motion Course - Vital Signs Last Recorded V/S: Last Vital Signs Temp 36.8 C 06/17/18 11:00 Pulse 82 06/17/18 11:08 Resp 20 06/17/18 11:08 BP 178/107 H 06/17/18 11:08 Pulse Ox 97 06/17/18 11:08 - Orders/Labs/Meds Meds: Medications Discontinued Medications Generic Name Dose Route Start Last Admin Trade Name Freq PRN Reason Stop Dose Admin Amlodipine Besylate 10 mg 06/17/18 11:15 Norvasc PO 06/17/18 11:16 ONETIME ONE Clonidine HCl 0.1 mg 06/17/18 11:15 Catapres PO 06/17/18 11:16 ONETIME ONE Lisinopril/HCTZ 1 tab 06/17/18 11:15 Lisinopril/Hctz 10-12.5 Mg PO 06/17/18 11:16 NOW ONE Ketorolac Tromethamine 60 mg 06/17/18 11:15 Toradol IM 06/17/18 11:16 ONETIME ONE Ondansetron HCl 4 mg 06/17/18 11:16 Zofran Odt PO 06/17/18 11:17 ONETIME ONE Departure - Departure Time of Disposition: 11:22 Disposition: Home, Self-Care 01 Condition: Good Clinical Impression: Pain due to dental caries - Discharge Information *PRESCRIPTION DRUG MONITORING PROGRAM REVIEWED*: Not Applicable *COPY OF PRESCRIPTION DRUG MONITORING REPORT IN PATIENT SAM: Not Applicable Prescriptions: Azithromycin 250 mg PO DAILY #6 tablet Referrals: Jose Dos Santos MD [Primary Care Provider] - Additional Instructions: For infection, take azithromycin 250 mg 2 tabs today, then 1 tab daily for 4 more days. For pain, take ibuprofen 200 mg 3 tabs and acetaminophen 500 mg 2 tabs 4 times a day for 1-2 days. Use ice and cold liquids for 10 minutes every hour. See a dentist as soon as possible. Restart your blood pressure meds. See your doctor in 4 days to recheck your blood pressure and adjust your meds.
[2018-06-17 12:12] VITALS: BP 162/106
== END 2018-06-17 12:09 | disposition home or self-care (01) ==
LOC: FB.ED 10:56
DX: K02.9 Dental caries, unspecified (principal); I10 Essential (primary) hypertension; F17.210 Nicotine dependence, cigarettes, uncomplicated; Z98.890 Other specified postprocedural states; Z88.1 Allergy status to other antibiotic agents; Z88.5 Allergy status to narcotic agent; Z88.8 Allergy status to other drugs, medicaments and biological substances; Z91.030 Bee allergy status
CPT/HCPCS: 96372; 99283; A9270; J1885

== ENCOUNTER 2019-02-05 11:16 | Emergency (ER) | payer MEDICAID ==
--- NOTE | 2019-02-05 11:55 | EDM.PDOC ---
ED HPI GENERAL MEDICAL PROBLEM - General Stated Complaint: QUAD PAIN R SIDE Time Seen by Provider: 02/05/19 11:54 Source of Information: Reports: Patient History Limitations: Reports: No Limitations - History of Present Illness INITIAL COMMENTS - FREE TEXT/NARRATIVE: 38-year-old male who was pushing a truck on of this last week and he felt and heard a pop in his right medial distal thigh. He had some pain in the area initially and the pain has worsened. He states that he fell at the time also jammed his right knee against a rock and he has some pain in his right knee as well but most of the pain is in the distal quadriceps area. He finds that it is difficult to straighten his leg at the knee and he has some spasming and quivering in the right quadriceps muscle. He also finds that it is difficult to walk because he doesn't have any strength in his right thigh muscle. 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 There were no other injuries. He rates the pain as a 7/10. It is a sharp and spasm-type pain. It is worse with movement and with palpation. There is normal sensation in the foot. There are no other associated signs or symptoms. There are no other modifying factors. Onset: Other (3 days ago.) Duration: Getting Worse Location: Reports: Lower Extremity, Right Quality: Reports: Sharp, Other (Spasm-like pain) Severity: Moderate Improves with: Reports: Immobilization, Rest Worsens with: Reports: Other (Activity. 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 R thigh Pain Score (Numeric/FACES): 7 - Related Data Allergies Allergy/AdvReac Type Severity Reaction Status Date / Time cefaclor [From [facility]] Allergy Hives Verified 02/05/19 11:47 codeine Allergy Edema Verified 02/05/19 11:47 venom-honey bee Allergy Anaphylactic Verified 02/05/19 11:47 [bee venom (honey bee)] Shock NSAIDS (Non-Steroidal AdvReac Stomach Verified 02/05/19 11:47 Anti-Inflamma Upset Home Meds: Home Meds Lisinopril/Hydrochlorothiazide [Lisinopril-Hctz 10-12.5 mg Tab] 1 tab PO DAILY 03/24/16 [History] Albuterol Sulfate [Albuterol Sulfate Hfa] 2 puff IH Q4H PRN 02/05/19 [History] Gabapentin [Neurontin] 600 mg TID 02/05/19 [History] Hydrocodone/Acetaminophen [[place] 5-325 Tablet] 1 - 2 tab PO Q6H PRN #10 tablet 02/05/19 [Rx] Sildenafil Citrate 3 - 5 tab ASDIRECTED 02/05/19 [History] Past Medical History HEENT History: Reports: Impaired Vision Other HEENT History: wears glasses Cardiovascular History: Reports: Hypertension Respiratory History: Reports: Asthma Genitourinary History: Reports: Renal Calculus Neurological History: Reports: Other (See Below) Other Neuro History: DEGENERATIVE DISC DISEASE Endocrine/Metabolic History: Reports: Obesity/BMI 30+ - Infectious Disease History Infectious Disease History: Reports: Chicken Pox, Influenza - Past Surgical History HEENT Surgical History: Reports: Eye Surgery Other HEENT Surgeries/Procedures: Lens removal et implant as a young kid. Retinal detachment surgery @2 weeks ago. Musculoskeletal Surgical History: Reports: Carpal Tunnel, Shoulder Replacement, Shoulder Surgery Social & Family History - Tobacco Use Smoking Status *Q: Current Every Day Smoker - Caffeine Use Caffeine Use: Reports: Coffee, Soda Caffeine Use Comment: 24oz coffee per day and approximately 1 pop per day as well. 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.) ED ROS GENERAL - Review of Systems Review Of Systems: See Below Constitutional: Reports: No Symptoms HEENT: Reports: No Symptoms Respiratory: Reports: No Symptoms Cardiovascular: Reports: No Symptoms Endocrine: Reports: No Symptoms GI/Abdominal: Reports: No Symptoms : Reports: No Symptoms Musculoskeletal: Reports: Muscle Pain (Right thigh under sups), Other (Right knee pain) Skin: Reports: No Symptoms Neurological: Reports: No Symptoms Hematologic/Lymphatic: Reports: No Symptoms Immunologic: Reports: No Symptoms ED EXAM, GENERAL - Physical Exam Exam: See Below Exam Limited By: No Limitations General Appearance: Alert, WD/WN, Mild Distress (Pain) Eye Exam: Bilateral Eye: EOMI, Normal Inspection, PERRL Ears: Normal External Exam, Hearing Grossly Normal Ear Exam: Bilateral Ear: Auricle Normal Nose: Normal Inspection, Normal Mucosa, No Blood Throat/Mouth: Normal Oropharynx, Normal Voice, No Airway Compromise Head: Atraumatic, Normocephalic Neck: Normal Inspection, Supple, Non-Tender, Full Range of Motion Respiratory/Chest: No Respiratory Distress, Lungs Clear, Normal Breath Sounds, No Accessory Muscle Use, Chest Non-Tender Cardiovascular: Normal Peripheral Pulses, Regular Rate, Rhythm, No Murmur Peripheral Pulses: 2+: Radial (L), Radial (R), Dorsalis Pedis (L), Dorsalis Pedis (R) GI/Abdominal: Normal Bowel Sounds, Soft, Non-Tender, No Mass Back Exam: Normal Inspection Extremities: No Pedal Edema, Normal Capillary Refill, Other (Tender over the right medial distal quadriceps area. There does seem to be some dip and the muscle in this area with tensing of the muscle. Is able to straighten his right leg at the knee but with difficulty. No crepitus or bony deformity noted and no ligamentous laxity noted in the knee) Neurological: Alert, Oriented, CN II-XII Intact, Normal Cognition, No Motor/ Sensory Deficits Skin Exam: Warm, Dry, Intact, Normal Color, No Rash Course - Vital Signs Last Recorded V/S: Last Vital Signs Temp 36.4 C 02/05/19 11:35 Pulse 79 02/05/19 11:35 Resp 18 02/05/19 11:35 BP 186/105 H 02/05/19 11:35 Pulse Ox 98 02/05/19 11:35 - Orders/Labs/Meds Orders: Active Orders 24 hr Category Date Time Status Femur Min 2V Rt [CR] Stat Exams 02/05/19 12:05 Taken Knee 1V or 2V Rt [CR] Stat Exams 02/05/19 12:05 Taken Meds: Medications Discontinued Medications Generic Name Dose Route Start Last Admin Trade Name Freq PRN Reason Stop Dose Admin Hydrocodone Bitart/Acetaminophen 2 tab 02/05/19 12:07 02/05/19 12:56 [place] 325-5 Mg PO 02/05/19 12:08 2 tab ONETIME ONE Administration - Radiology Interpretation Free Text/Narrative:: Right knee x-ray reveals no fracture or malalignment. Right femur x-ray reveals no fracture or malalignment. - Re-Assessments/Exams Free Text/Narrative Re-Assessment/Exam: 02/05/19 13:23: The patient's x-rays were negative. His exam and history insistent with a partial quadriceps muscle tear of the right thigh. I will place the patient in a knee immobilizer and he is being referred to Dr. Noe Andre, orthopedist at [facility]. They will call him with an appointment time. 02/05/19 13:31: The patient did not feel comfortable with the knee immobilizer in place. I recommended crutches and he refused to use those as well. We will place him in an Idris wrap and I have told him to limit walking. He should apply ice packs intermittently to the quadriceps area. I did give him a small prescription of pain medications. Departure - Departure Time of Disposition: 13:35 Disposition: Home, Self-Care 01 Condition: Good Clinical Impression: Contusion of right knee, initial encounter Quadriceps muscle rupture Qualifiers: Encounter type: initial encounter Laterality: right Qualified Code(s): S76.111A - Strain of right quadriceps muscle, fascia and tendon, initial encounter - Discharge Information Prescriptions: Hydrocodone/Acetaminophen [[place] 5-325 Tablet] 1 - 2 tab PO Q6H PRN #10 tablet PRN Reason: Moderate to severe pain Instructions: Pain Medicine Instructions, [id number], Quadriceps Strain, Contusion, [id number] Referrals: Jose Dos Santos MD [Primary Care Provider] - Noe Andre DO [Physician] - Forms: ED Return to Work/School Form Additional Instructions: You appear to have a tear to part of the quadriceps muscle of your right thigh. You should apply ice packs intermittently to this area for the next few days. I did recommend that you use crutches with no weightbearing on your right leg but he refused these. You should try to avoid any walking or use of your right leg until you have seen Dr. Andre. Their office should call you with an appointment sometime next week. Medication as prescribed for more severe pain (hydrocodone 5 /325). Sedentary work only until cleared by Dr. Andre. Back to the emergency department for fever, redness or any other concerning sign or symptom. - My Orders Last 24 Hours: My Active Orders 02/05/19 12:05 Femur Min 2V Rt [CR] Stat Knee 1V or 2V Rt [CR] Stat - Assessment/Plan Last 24 Hours: My Active Orders 02/05/19 12:05 Femur Min 2V Rt [CR] Stat Knee 1V or 2V Rt [CR] Stat
[2019-02-05] MEDS ORDERED: Acetaminophen/HYDROcodone 325-5 MG Tab PO ONE (12:07)
[2019-02-05 13:51] VITALS: BP 189/123
--- NOTE | 2019-02-07 11:51 | CR ---
INDICATION: Right knee pain, status post injury. RIGHT KNEE: Three views of the right knee revealed minimal degenerative change at the lateral intercondylar spine. There is prominence at the suprapatellar bursa, suggesting a knee joint effusion. No other bone or joint abnormality was suggested - no acute fracture or dislocation was seen. If internal derangement is suspected clinically, additional examination such as MRI may be helpful. MTDD
--- NOTE | 2019-02-07 11:52 | CR ---
INDICATION: Right thigh pain, status post injury. RIGHT FEMUR: Five images of the right femur in frontal and lateral projections revealed degenerative changes and possible knee joint effusion, as noted previously. The right femur was otherwise unremarkable - the hip joint appears to be fairly intact. Essentially normal bone density is noted. A small sclerotic density at the greater trochanter most likely represents a minimal benign bone island. IMPRESSION: No acute fracture or dislocation. There is suggestion of a knee joint effusion seen on knee x-ray also. MTDD
== END 2019-02-05 13:48 | disposition home or self-care (01) ==
LOC: FB.ED 11:16
DX: S80.01XA Contusion of right knee, initial encounter (principal); S76.111A Strain of right quadriceps muscle, fascia and tendon, initial encounter; I10 Essential (primary) hypertension; Z79.899 Other long term (current) drug therapy; Z88.1 Allergy status to other antibiotic agents; Z88.5 Allergy status to narcotic agent; Z91.030 Bee allergy status; Z88.8 Allergy status to other drugs, medicaments and biological substances; X58.XXXA Exposure to other specified factors, initial encounter
CPT/HCPCS: 73552; 73560; 99283; A9270

== ENCOUNTER 2019-03-17 06:45 | Day surgery (SDC) | payer MEDICAID ==
[~2019-03-17 06:45] MED LIST: Acetaminophen 500 MG Tab PO ONE; Gabapentin 300 MG Cap PO ONE; Lactated Ringers 1,000 ML IV SCH; Sodium Chloride 0.9% 10 ML Syringe FLUSH PRN
[2019-03-17] MEDS ORDERED: Rocuronium 50 MG/5 ML Vial IV ONE (06:46)
[2019-03-17] MEDS ORDERED: HYDROmorphone 2 MG/ML SDV IV ONE (06:46)
[2019-03-17] MEDS ORDERED: Lactated Ringers 1,000 ML IV ONE (06:46)
[2019-03-17] MEDS ORDERED: Propofol 200 MG/20 ML SDV IV ONE (06:46)
[2019-03-17] MEDS ORDERED: fentaNYL 100 MCG/2 ML SDV IV ONE (06:46)
[2019-03-17] MEDS ORDERED: Lidocaine 2% 100 MG/5 ML Syringe IVPUSH ONE (06:46)
[2019-03-17] MEDS ORDERED: Ketorolac 30 MG/ML SDV IVPUSH ONE ×2 (06:46→09:46)
[2019-03-17] MEDS ORDERED: Dexamethasone 4 MG/ML 5 ML MDV IVPUSH ONE (06:46)
[2019-03-17] MEDS ORDERED: Midazolam 1 MG/ML 2 ML SDV IV ONE (06:46)
[2019-03-17] MEDS ORDERED: Albuterol/Ipratropium 3.0-0.5 MG/3 ML Neb Soln NEB PRN (07:31)
[2019-03-17] MEDS ORDERED: Clindamycin in 0.9 % Sod Chlor 900 MG/50 ML BAG IV ONE (08:00)
[2019-03-17] MEDS ORDERED: Clindamycin Phosphate 900 MG in Sodium Chloride 0.9% 100 ML IV ONE (08:00)
[2019-03-17] MEDS ORDERED: Gentamicin 40 MG/ML 2 ML Vial ONE (08:37)
[2019-03-17] MEDS ORDERED: EPINEPHrine 1 MG/ML SDV ONE (08:37)
[2019-03-17] MEDS ORDERED: Bupivacaine 0.5%/EPINEPHrine 1:200,000 50 ML MDV INJECT ONE (08:38)
[2019-03-17] MEDS ORDERED: Acetaminophen/oxyCODONE 325-5 MG Tab PO ONE (09:46)
--- NOTE | 2019-03-17 10:44 | PCM.OPNOTE ---
- General Post-Op/Procedure Note Date of Surgery/Procedure: 03/17/19 Operative Procedure(s): right knee arthroscopy. partial medial menisectomy. medial plice resection Pre Op Diagnosis: right medial meniscus tear Post-Op Diagnosis: Same Anesthesia Technique: General ET Tube Primary Surgeon: Noe Andre Anesthesia Provider: Jose Quispe EBL in mLs: 5 Complications: None Condition: Good
[2019-03-17 15:27] VITALS: BP 160/97; PULSE 84
--- NOTE | 2019-03-17 17:12 | OR ---
DATE OF OPERATION: 03/17/2019 SURGEON: Noe Andre DO PREOPERATIVE DIAGNOSIS: Right medial meniscus tear. POSTOPERATIVE DIAGNOSIS: Right medial meniscus tear and medial plica. PROCEDURE: Right knee arthroscopy with partial medial meniscectomy and medial plica resection. ANESTHESIA: General endotracheal intubation. FLUID: Lactated Ringer solution. ESTIMATED BLOOD LOSS: 5 mL. COMPLICATIONS: None. SPECIMEN: None. DISCHARGE DISPOSITION: Stable to PACU. HISTORY AND INDICATIONS FOR THE PROCEDURE: The patient is seen preoperatively in the clinic. We tried extensive nonoperative treatment including injections and topicals as well as anti-inflammatories, but he was not getting any better. Preoperative imaging confirmed the above-mentioned diagnosis. Risks and benefits of the procedure explained to the patient. Informed consent was obtained. DETAILS OF PROCEDURE: The patient was seen preoperatively by myself and Anesthesia staff in the preoperative holding area where the operative site was marked. He was brought to the operative suite by Anesthesia staff where general anesthesia was administered. His left lower extremity was placed into a stirrup. His right lower extremity was placed into a hip crandall. All extremities were found to be well padded. A well-padded tourniquet was placed on the right thigh. The right lower extremity was then prepped and draped in a sterile manner. Time-out was called identifying the correct patient, correct procedure, and the correct site and antibiotics begun within appropriate period of time. The right lower extremity was then exsanguinated. Tourniquet was raised to 300 mmHg. Lateral portal was then made and then the trocar was used to enter the joint and then the knee was extended going into the patellofemoral space. The camera was then inserted. I inspected the patella, which appeared to be in good condition as well as the trochlea. Lateral and medial gutters were clear except that the medial gutter had a large plica. I then focused on the medial and lateral compartments. I did use a shaver through the lateral portal that was placed to remove some infrapatellar fat pad for visualization. The lateral meniscus had no abnormalities. The medial meniscus had a posterior tear. ACL was in good condition. The medial meniscus was then shaved and then stabilized using cautery. I then extended the knee again and then resected the medial plica with a shaver. After our goals were accomplished, we then removed our instruments from the knee and then injected local anesthetic, placed two 3-0 [id number] nylon sutures, and then the portals had Betadine-soaked Adaptic placed over them, sterile sponges and then an Idris wrap. The patient had the tourniquet let down. He was allowed to awaken from general anesthesia and taken to the PACU in stable condition. /[id number] BS/KERI
== END 2019-03-17 10:45 | disposition home or self-care (01) ==
LOC: FB.SDS 06:45
PROVIDERS: ATTEND Orthopaedic Surgery
DX: S83.241A Other tear of medial meniscus, current injury, right knee, initial encounter (principal); M67.51 Plica syndrome, right knee; I10 Essential (primary) hypertension; J45.909 Unspecified asthma, uncomplicated; F17.210 Nicotine dependence, cigarettes, uncomplicated; F41.9 Anxiety disorder, unspecified; K21.9 Gastro-esophageal reflux disease without esophagitis; E66.9 Obesity, unspecified; X58.XXXA Exposure to other specified factors, initial encounter; Z88.1 Allergy status to other antibiotic agents; Z88.5 Allergy status to narcotic agent; Z88.6 Allergy status to analgesic agent; Z91.030 Bee allergy status; Z68.41 Body mass index [BMI] 40.0-44.9, adult; Z79.82 Long term (current) use of aspirin; Z79.899 Other long term (current) drug therapy
CPT/HCPCS: 29881; 94150; A9270; J0171; J1100; J1170; J1580; J1885; J2001; J2250; J2704; J3010; J3490; J7120; J7620-GY

== ENCOUNTER 2020-03-09 07:53 | Emergency (ER) | payer MEDICAID ==
[2020-03-09] MEDS ORDERED: Clindamycin HCl 150 MG Cap PO ONE ×2 (08:37→08:38)
--- NOTE | 2020-03-09 08:40 | EDM.PDOC ---
ED HPI GENERAL MEDICAL PROBLEM - General Stated Complaint: TOOTH INFECTION Time Seen by Provider: 03/09/20 08:20 Source of Information: Reports: Patient History Limitations: Reports: No Limitations - History of Present Illness INITIAL COMMENTS - FREE TEXT/NARRATIVE: c/o dental pain declined Toradol here pain at tooth ##28 x 1w, tooth cracked last night and pain inc'd he packed tooth with temporary filler that did not help works at [employer], needs a note for work today says he "just needs an antibx" plans to see dentist in 2w, has dental insurance, needs to get together the money for the copay [facility] neg - Related Data Allergies Allergy/AdvReac Type Severity Reaction Status Date / Time cefaclor [From Ceclor] Allergy Hives Verified 02/05/19 11:47 venom-honey bee Allergy Anaphylactic Verified 02/05/19 11:47 [bee venom (honey bee)] Shock Home Meds: Home Meds Albuterol Sulfate [Albuterol Sulfate Hfa] 2 puff IH Q4H PRN 02/05/19 [History] Gabapentin [Neurontin] 600 mg PO TID PRN 02/05/19 [History] Sildenafil Citrate 3 - 5 tab ASDIRECTED 02/05/19 [History] amLODIPine Besylate [Norvasc] 10 mg PO DAILY 02/05/19 [History] EPINEPHrine [Auvi-Q] 0.3 mg IJ ASDIRECTED PRN 03/16/19 [History] Lisinopril/Hydrochlorothiazide [Lisinopril-Hctz 20-25 mg Tab] 1 ea PO DAILY 03/16/19 [History] hydrOXYzine HCL [Atarax] 25 mg PO BEDTIME 03/16/19 [History] Acetaminophen/oxyCODONE [Percocet 325-5 MG] 1 each PO TID #21 tab 03/17/19 [Rx] Gabapentin [Neurontin] 300 mg PO TID #42 cap 03/17/19 [Rx] Lidocaine 2% [Xylocaine 2% Viscous] 30 ml PO ASDIRECTED #1 cup 03/09/20 [Rx] clindamycin HCL [Cleocin HCl] 300 mg PO TID #21 capsule 03/09/20 [Rx] Past Medical History - Past Health History Medical/Surgical History: Denies Medical/Surgical History HEENT History: Reports: Impaired Vision Other HEENT History: wears glasses Cardiovascular History: Reports: Hypertension Respiratory History: Reports: Asthma, Bronchitis, Recurrent Gastrointestinal History: Reports: None Genitourinary History: Reports: Renal Calculus Musculoskeletal History: Reports: Fracture, Neck Pain, Chronic Other Musculoskeletal History: should dislocation; DISGENERATIVE DISC DISEASE, bulging disc in neck,m hx fx fingers, toes, R wrist, skull fx Neurological History: Reports: Headaches, Chronic, Other (See Below) Other Neuro History: DEGENERATIVE DISC DISEASE Psychiatric History: Reports: None, Anxiety Endocrine/Metabolic History: Reports: Obesity/BMI 30+ Hematologic History: Reports: None Immunologic History: Reports: None Oncologic (Cancer) History: Reports: None Dermatologic History: Reports: None - Infectious Disease History Infectious Disease History: Reports: Chicken Pox, Influenza - Past Surgical History Head Surgeries/Procedures: Reports: None HEENT Surgical History: Reports: Cataract Surgery, Eye Surgery Other HEENT Surgeries/Procedures: Lens removal et implant as a young kid. Retinal detachment surgery @2 weeks ago. Musculoskeletal Surgical History: Reports: Carpal Tunnel, Shoulder Replacement, Shoulder Surgery Other Musculoskeletal Surgeries/Procedures:: LEFT SHOULDER SURGERY Social & Family History - Family History Family Medical History: Noncontributory - Caffeine Use Caffeine Use: Reports: Coffee Caffeine Use Comment: 24oz coffee per day and approximately 1 pop per day as well. 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.) ED ROS ENT - Review of Systems Review Of Systems: See Below Constitutional: Reports: No Symptoms HEENT: Reports: Other (dental pain) Respiratory: Reports: No Symptoms Endocrine: Reports: No Symptoms GI/Abdominal: Reports: No Symptoms : Reports: No Symptoms Musculoskeletal: Reports: No Symptoms Skin: Reports: No Symptoms Neurological: Reports: No Symptoms Psychiatric: Reports: No Symptoms Hematologic/Lymphatic: Reports: No Symptoms Immunologic: Reports: No Symptoms ED EXAM, ENT - Physical Exam Exam: See Below Exam Limited By: No Limitations General Appearance: Alert, WD/WN, Mild Distress Ears: Normal External Exam, Hearing Grossly Normal Nose: Normal Inspection, Normal Mucousa, No Blood Mouth/Throat: Other (tooth #38 is deeply cracked in middle, white filling noted, gum not red/swollen, mild mandible pain, tooth painful to touch, no cervical LNs) Head: Atraumatic, Normocephalic Neck: Normal Inspection, Supple, Non-Tender, Full Range of Motion. No: Lymphadenopathy (R), Lymphadenopathy (L) Respiratory/Chest: No Respiratory Distress Cardiovascular: Regular Rate, Rhythm Course - Re-Assessments/Exams Free Text/Narrative Re-Assessment/Exam: 03/09/20 08:47 poor dentition with multiple caries, pt has had teeth pulled in past, plans to have multiple teeth pulled this time Departure - Departure Time of Disposition: 08:35 Disposition: Home, Self-Care 01 Condition: Good Clinical Impression: Pain due to dental caries, Dental abscess - Discharge Information *PRESCRIPTION DRUG MONITORING PROGRAM REVIEWED*: Yes *COPY OF PRESCRIPTION DRUG MONITORING REPORT IN PATIENT SAM: No Prescriptions: clindamycin HCL [Cleocin HCl] 300 mg PO TID #21 capsule Lidocaine 2% [Xylocaine 2% Viscous] 30 ml PO ASDIRECTED #1 cup Instructions: Dental Abscess Referrals: Jose Dos Santos MD [Primary Care Provider] - Forms: ED Return to Work/School Form Additional Instructions: For infection, take clindamycin 300 mg 1 capsule 3 times a day for 7 days. For pain, put a thin layer of 2% viscous lidocaine on a cotton ball and bite down every hour as needed. For pain, take ibuprofen 200 mg 3 tabs and acetaminophen 500 mg 2 tabs 4 times a day for 2 days, longer if possible. Use ice pack to mandible for 10 minutes every hour as needed. Drink cold liquids, eat cool and soft food, chew on the opposite side. See a dentist as soon as possible. No work today.
[2020-03-09 09:08] VITALS: BP 134/74; PULSE 75
== END 2020-03-09 08:48 | disposition home or self-care (01) ==
LOC: FB.ED 07:53
DX: K04.7 Periapical abscess without sinus (principal); K02.9 Dental caries, unspecified; I10 Essential (primary) hypertension; J45.909 Unspecified asthma, uncomplicated; E66.9 Obesity, unspecified; Z88.1 Allergy status to other antibiotic agents; Z91.030 Bee allergy status; Z68.41 Body mass index [BMI] 40.0-44.9, adult
CPT/HCPCS: 99282; A9270

== ENCOUNTER 2020-05-07 08:57 | Emergency (ER) | payer MEDICAID ==
[2020-05-07] MEDS ORDERED: Ketorolac 60 MG/2 ML SDV IM ONE (09:22)
[2020-05-07] MEDS ORDERED: methylPREDNISolone Sodium Succinate 125 MG/2 ML SDV IM ONE (09:22)
--- NOTE | 2020-05-07 09:39 | EDM.PDOC ---
ED HPI GENERAL MEDICAL PROBLEM - General Stated Complaint: LT SHOULDER PAIN Time Seen by Provider: 05/07/20 09:05 Source of Information: Reports: Patient History Limitations: Reports: No Limitations - History of Present Illness INITIAL COMMENTS - FREE TEXT/NARRATIVE: pt with left shoulder replaced 6 yrs ago in the last 4-5 days has worsening pain , shooting from the lower shoulder to the arm states about 7-10 denies new injury but states he always lifts heavy things that could have triggered the pain denies any numbness or tingling in the fingers( had carpal tunnel release) limited ROM due to pain thinks it is deep bone pain but denies any trauma to the area Onset: Gradual Onset Date: 05/02/20 Duration: Day(s): (4), Getting Worse, Waxing/Waning Location: Reports: Upper Extremity, Left (left shoulder) Quality: Reports: Ache, Dull Severity: Moderate Improves with: Reports: Immobilization Worsens with: Reports: Movement Context: Reports: Activity, Other (heavy lifting ) Left Shoulder Pain Score (Numeric/FACES): 7 - Related Data Allergies Allergy/AdvReac Type Severity Reaction Status Date / Time [facility]lor [[facility] Allergy Hives Verified 05/07/20 09:12 venom-honey bee Allergy Anaphylactic Verified 05/07/20 09:12 [bee venom (honey bee)] Shock Home Meds: Home Meds Albuterol Sulfate [Albuterol Sulfate Hfa] 2 puff IH Q4H PRN 02/05/19 [History] Sildenafil Citrate 3 - 5 tab ASDIRECTED 02/05/19 [History] amLODIPine Besylate [Norvasc] 10 mg PO DAILY 02/05/19 [History] EPINEPHrine [Auvi-Q] 0.3 mg IJ ASDIRECTED PRN 03/16/19 [History] Lisinopril/Hydrochlorothiazide [Lisinopril-Hctz 20-25 mg Tab] 1 ea PO DAILY 03/16/19 [History] hydrOXYzine HCL [Atarax] 25 mg PO BEDTIME 03/16/19 [History] Meloxicam 15 mg PO DAILY #30 tablet 05/07/20 [Rx] Metoprolol Succinate [Toprol XL 50mg] 50 mg PO DAILY 05/07/20 [History] traMADol HCl [Tramadol HCl] 50 mg PO Q6H PRN #10 tablet 05/07/20 [Rx] Past Medical History - Past Health History Medical/Surgical History: Denies Medical/Surgical History HEENT History: Reports: Impaired Vision Other HEENT History: wears glasses Cardiovascular History: Reports: Hypertension Respiratory History: Reports: Asthma, Bronchitis, Recurrent Gastrointestinal History: Reports: None Genitourinary History: Reports: Renal Calculus Musculoskeletal History: Reports: Fracture, Neck Pain, Chronic Other Musculoskeletal History: should dislocation; DISGENERATIVE DISC DISEASE, bulging disc in neck,m hx fx fingers, toes, R wrist, skull fx Neurological History: Reports: Headaches, Chronic, Other (See Below) Other Neuro History: DEGENERATIVE DISC DISEASE Psychiatric History: Reports: None, Anxiety Endocrine/Metabolic History: Reports: Obesity/BMI 30+ Hematologic History: Reports: None Immunologic History: Reports: None Oncologic (Cancer) History: Reports: None Dermatologic History: Reports: None - Infectious Disease History Infectious Disease History: Reports: Chicken Pox - Past Surgical History Head Surgeries/Procedures: Reports: None HEENT Surgical History: Reports: Cataract Surgery, Eye Surgery Other HEENT Surgeries/Procedures: Lens removal et implant as a young kid. Retinal detachment surgery Musculoskeletal Surgical History: Reports: Carpal Tunnel, Shoulder Replacement, Shoulder Surgery Other Musculoskeletal Surgeries/Procedures:: LEFT SHOULDER SURGERY Social & Family History - Family History Family Medical History: No Pertinent Family History - Caffeine Use Caffeine Use: Reports: Coffee Caffeine Use Comment: 24oz coffee per day and approximately 1 pop per day as well. 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 Denies: Numbness, Tingling Psychiatric: Reports: No Symptoms ED EXAM, GENERAL - Physical Exam Exam: See Below Exam Limited By: No Limitations General Appearance: Alert, WD/WN, No Apparent Distress Ears: Normal External Exam Nose: Normal Inspection Throat/Mouth: Normal Oropharynx Head: Atraumatic, Normocephalic Neck: Supple, Non-Tender Respiratory/Chest: No Respiratory Distress, Lungs Clear Cardiovascular: Regular Rate, Rhythm GI/Abdominal: Soft, Non-Tender Back Exam: Normal Inspection, Full Range of Motion Extremities: Arm Pain, Limited Range of Motion (left shoulder). No: Joint Swelling, Increased Warmth, Redness Neurological: Alert, Oriented, CN II-XII Intact Psychiatric: Normal Affect Skin Exam: Warm Course - Vital Signs Last Recorded V/S: Last Vital Signs Temp 36.2 C 05/07/20 09:22 Pulse 70 05/07/20 09:22 Resp 16 05/07/20 09:22 BP 144/86 H 05/07/20 09:22 Pulse Ox 98 05/07/20 09:22 - Orders/Labs/Meds Meds: Medications Discontinued Medications Generic Name Dose Route Start Last Admin Trade Name Freq PRN Reason Stop Dose Admin Ketorolac Tromethamine 60 mg 05/07/20 09:22 Toradol IM 05/07/20 09:23 ONETIME ONE Methylprednisolone Sodium Succinate 125 mg 05/07/20 09:22 05/07/20 09:53 Solu-Medrol IM 05/07/20 09:23 125 mg ONETIME ONE Administration Departure - Departure Time of Disposition: 10:35 Disposition: Home, Self-Care 01 Condition: Fair Clinical Impression: Chronic left shoulder pain, Sprain of shoulder, History of arthroplasty of left shoulder Shoulder pain, left Qualifiers: Chronicity: chronic Qualified Code(s): M25.512 - Pain in left shoulder - Discharge Information *PRESCRIPTION DRUG MONITORING PROGRAM REVIEWED*: Not Applicable *COPY OF PRESCRIPTION DRUG MONITORING REPORT IN PATIENT SAM: Not Applicable Instructions: Joint Pain, [id number] Referrals: Jose Dos Santos MD [Primary Care Provider] - Additional Instructions: Continue with Prednisone 40mg daily for 5 days Cyclobenzaprine 10 mg 3 times a day as needed make appointment to see orthopedic surgeon for Follow up. You will need an MRI done Sepsis Event Note (ED) - Focused Exam Vital Signs: Vital Signs Temp Pulse Resp BP Pulse Ox 05/07/20 09:22 36.2 C 70 16 144/86 H 98
--- NOTE | 2020-05-07 10:19 | CR ---
INDICATION: Chronic left shoulder pain, no history of trauma. LEFT SHOULDER: Four views of the left shoulder were obtained 05/07/20 and compared with 04/15/16, again revealing a total shoulder arthroplasty with one fractured screw at the glenoid fossa again noted. The second more inferior screw is noted at what appears to be a bony fragment inferior to the glenoid and anterior to the glenoid. This appears unchanged. No change in the position and alignment of the total shoulder arthroplasty is suggested which remains satisfactory in appearance. No acute fracture or dislocation was suggested. The clavicle was not fully included on the study,but did appear intact as visualized. IMPRESSION: Stable left shoulder arthroplasty and postsurgical changes at the left shoulder. If loosening is suspected clinically, 3-phase nuclear bone imaging may be helpful for further evaluation. RADHAD
[2020-05-07 11:47] VITALS: BP 138/74; PULSE 84
== END 2020-05-07 10:50 | disposition home or self-care (01) ==
LOC: FB.ED 08:57
DX: S43.402A Unspecified sprain of left shoulder joint, initial encounter (principal); Z96.612 Presence of left artificial shoulder joint; I10 Essential (primary) hypertension; J45.909 Unspecified asthma, uncomplicated; E66.9 Obesity, unspecified; Z88.1 Allergy status to other antibiotic agents; Z91.030 Bee allergy status; Z79.899 Other long term (current) drug therapy; X50.0XXA Overexertion from strenuous movement or load, initial encounter
CPT/HCPCS: 73030; 96372; 99283; J2930

== ENCOUNTER 2020-09-04 13:43 | Emergency (ER) | payer MEDICAID ==
[2020-09-04] MEDS ORDERED: LORazepam 2 MG/ML SDV IM STA (14:32)
--- NOTE | 2020-09-04 15:13 | EDM.PDOC ---
ED HPI GENERAL MEDICAL PROBLEM - General Stated Complaint: LFT KIDNEY PAIN Time Seen by Provider: 09/04/20 14:15 Source of Information: Reports: Patient History Limitations: Reports: No Limitations - History of Present Illness INITIAL COMMENTS - FREE TEXT/NARRATIVE: Patient presented to the ED because of left flank pain for 1 week. The pain is sharp,10/10,There is nausea and vomiting x 1. No fever,chills, noted. He is taking [place] and it doesn't seem to help. - Related Data Allergies Allergy/AdvReac Type Severity Reaction Status Date / Time cefaclor [From Ceclor] Allergy Hives Verified 09/04/20 14:16 venom-honey bee Allergy Anaphylactic Verified 09/04/20 14:16 [bee venom (honey bee)] Shock Home Meds: Home Meds Albuterol Sulfate [Albuterol Sulfate Hfa] 2 puff IH Q4H PRN 02/05/19 [History] Sildenafil Citrate 3 - 5 tab ASDIRECTED 02/05/19 [History] amLODIPine Besylate [Norvasc] 10 mg PO DAILY 02/05/19 [History] EPINEPHrine [Auvi-Q] 0.3 mg IJ ASDIRECTED PRN 03/16/19 [History] Lisinopril/Hydrochlorothiazide [Lisinopril-Hctz 20-25 mg Tab] 1 ea PO DAILY 03/16/19 [History] Metoprolol Succinate [Toprol XL 50mg] 50 mg PO DAILY 05/07/20 [History] Cyclobenzaprine [Flexeril] 10 mg PO TID PRN #15 tab 09/04/20 [Rx] Hydrocodone/Acetaminophen [Hydrocodon-Acetaminophn 10-325] 1 tab PO BEDTIME PRN 09/04/20 [History] Testosterone [Androderm] 1 each TD BEDTIME 09/04/20 [History] Past Medical History - Past Health History Medical/Surgical History: Denies Medical/Surgical History HEENT History: Reports: Impaired Vision Other HEENT History: wears glasses Cardiovascular History: Reports: Hypertension Respiratory History: Reports: Asthma, Bronchitis, Recurrent Gastrointestinal History: Reports: None Genitourinary History: Reports: Renal Calculus Musculoskeletal History: Reports: Fracture, Neck Pain, Chronic Other Musculoskeletal History: should dislocation; DISGENERATIVE DISC DISEASE, bulging disc in neck,m hx fx fingers, toes, R wrist, skull fx Neurological History: Reports: Headaches, Chronic, Other (See Below) Other Neuro History: DEGENERATIVE DISC DISEASE Psychiatric History: Reports: None, Anxiety Endocrine/Metabolic History: Reports: Obesity/BMI 30+ Hematologic History: Reports: None Immunologic History: Reports: None Oncologic (Cancer) History: Reports: None Dermatologic History: Reports: None - Infectious Disease History Infectious Disease History: Reports: Chicken Pox - Past Surgical History Head Surgeries/Procedures: Reports: None HEENT Surgical History: Reports: Cataract Surgery, Eye Surgery Other HEENT Surgeries/Procedures: Lens removal et implant as a young kid. Retinal detachment surgery Musculoskeletal Surgical History: Reports: Carpal Tunnel, Shoulder Replacement, Shoulder Surgery Other Musculoskeletal Surgeries/Procedures:: LEFT SHOULDER SURGERY Social & Family History - Family History Family Medical History: No Pertinent Family History - Caffeine Use Caffeine Use: Reports: Coffee Caffeine Use Comment: 24oz coffee per day and approximately 1 pop per day as well. 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.) ED ROS GENERAL - Review of Systems Review Of Systems: See Below Constitutional: Reports: No Symptoms HEENT: Reports: No Symptoms Respiratory: Reports: No Symptoms Cardiovascular: Reports: No Symptoms Endocrine: Reports: No Symptoms GI/Abdominal: Reports: Abdominal Pain : Reports: No Symptoms Musculoskeletal: Reports: No Symptoms Skin: Reports: No Symptoms Neurological: Reports: No Symptoms Psychiatric: Reports: No Symptoms Hematologic/Lymphatic: Reports: No Symptoms ED EXAM, GI/ABD - Physical Exam Exam: See Below Exam Limited By: No Limitations General Appearance: Alert, No Apparent Distress Ears: Normal External Exam Nose: Normal Mucosa Throat/Mouth: Normal Inspection, Normal Lips Head: Atraumatic, Normocephalic Neck: Normal Inspection, Supple, Non-Tender, Full Range of Motion Respiratory/Chest: No Respiratory Distress, Lungs Clear, Normal Breath Sounds Cardiovascular: Normal Peripheral Pulses, Regular Rate, Rhythm, No Edema, No Gallop, No JVD, No Murmur GI/Abdominal Exam: Normal Bowel Sounds, Soft (Left CVAT), Other Extremities: Normal Inspection, Normal Range of Motion Neurological: Alert, Oriented, CN II-XII Intact Psychiatric: Normal Affect Skin Exam: Warm Course - Vital Signs Text/Narrative:: Labs and CT result was discussed with patient and his Ativan 1 mg IM x1 prior to CT scan Last Recorded V/S: Last Vital Signs Temp 36.8 C 09/04/20 14:10 Pulse 81 09/04/20 14:10 Resp 18 09/04/20 14:10 BP 153/96 H 09/04/20 14:10 Pulse Ox 97 09/04/20 14:10 - Orders/Labs/Meds Orders: Active Orders 24 hr Category Date Time Status Abdomen Pelvis wo Cont [CT] Stat Exams 09/04/20 13:56 Ordered Labs: Laboratory Tests 09/04/20 09/04/20 Range/Units 14:05 14:05 WBC 7.7 (3.2-10.1) x10-3/uL RBC 5.18 (3.90-5.90) x10(6)uL Hgb 16.0 (12.9-17.7) g/dL Hct 48.4 (38.3-50.1) % MCV 93.3 (80.8-98.7) fL MCH 31.0 (27.0-33.3) pg MCHC 33.2 (28.7-35.3) g/dL RDW 14.1 (12.4-15.0) % Plt Count 250 (117-477) x10(3)uL MPV 7.8 (6.7-11.0) fL Neut % (Auto) 65.1 (40.3-71.8) % Lymph % (Auto) 26.4 (15.8-45.3) % [place] % (Auto) 5.9 (5.5-15.2) % Eos % (Auto) 1.7 (0.1-6.8) % Baso % (Auto) 0.9 (0.3-3.8) % Neut # (Auto) 5.0 (1.7-6.9) x10-3/uL Lymph # (Auto) 2.0 (0.5-4.5) x10-3/uL [place] # (Auto) 0.5 (0.0-1.2) x10-3/uL Eos # (Auto) 0.1 (0.0-0.6) x10-3/uL Baso # (Auto) 0.1 (0.0-0.3) x10-3/uL Sodium 142 (135-145) mmol/L Potassium 3.5 (3.5-5.3) mmol/L Chloride 102 (100-110) mmol/L Carbon Dioxide 28 (21-32) mmol/L BUN 7 (7-18) mg/dL Creatinine 1.0 (0.70-1.30) mg/dL Est Cr Clr Drug Dosing TNP Estimated GFR (MDRD) > 60 (>60) BUN/Creatinine Ratio 7.0 L (9-20) Glucose 113 (80-116) mg/dL Calcium 8.4 L (8.6-10.2) mg/dL Meds: Medications Discontinued Medications Generic Name Dose Route Start Last Admin Trade Name Freq PRN Reason Stop Dose Admin Lorazepam 1 mg 09/04/20 14:32 Lorazepam 2 Mg/Ml Sdv IM 09/04/20 14:33 NOW STA Departure - Departure Time of Disposition: 15:15 Disposition: Home, Self-Care 01 Condition: Good Clinical Impression: Musculoskeletal pain - Discharge Information Prescriptions: Cyclobenzaprine [Flexeril] 10 mg PO TID PRN #15 tab PRN Reason: Spasms Instructions: Musculoskeletal Pain Referrals: Lina Greenwood NP [Primary Care Provider] - Forms: ED Department Discharge Additional Instructions: Please read discharge instructions on musculoskeletal pain Apply ice or heat whichever you prefevr Continue your [place] for pain Flexeril 10 mg every 8 hours as needed for muscle spasm Follow up as needed Sepsis Event Note (ED) - Focused Exam Vital Signs: Vital Signs Temp Pulse Resp BP Pulse Ox 09/04/20 14:10 36.8 C 81 18 153/96 H 97 - My Orders Last 24 Hours: My Active Orders 09/04/20 13:56 Abdomen Pelvis wo Cont [CT] Stat - Assessment/Plan Last 24 Hours: My Active Orders 09/04/20 13:56 Abdomen Pelvis wo Cont [CT] Stat
--- NOTE | 2020-09-04 16:44 | CT ---
CT ABDOMEN AND PELVIS WITHOUT CONTRAST 6725 INDICATION: Left flank pain for a week. History of kidney stone. Spiral 2.5 mm axial sections were obtained through the abdomen and pelvis with renal calculus protocol including sagittal and coronal reconstructions--no contrast. Study was obtained 09/04/2020 and is compared with 11/23/2017. Total exam DLP was 2144.54 mGy--cm. A localized eventration is noted medially at the left lung base. Lower lung garcia and pleural spaces visualized were unremarkable. The liver, gallbladder, adrenal glands, spleen, pancreas, adrenal glands, and kidneys, appeared normal. No evidence of obstructive uropathy or renal calcinosis was noted. The appendix appeared normal visualized on coronal images 37 through 58. No evidence of free air or bowel obstruction was noted. A tiny umbilical hernia including only fat was noted. No inguinal hernia was seen Urinary bladder wall may be slightly thickened raising question of cystitis but should be correlated clinically as the urinary bladder was not distended. No retroperitoneal mass was seen. Retroperitoneal lymphadenopathy is minimal and nonspecific. The stomach was not distended making it difficult to exclude gastric wall thickening--correlate clinically. No additional organomegaly, mass lesions, or free fluid collections were identified in the abdomen or pelvis. Progressive disc disease is noted at the lower thoracic spine. IMPRESSION: 1. Cannot exclude thickening of the gastric wall--the stomach was not distended--correlate clinically. 2. Thickening of the urinary bladder wall is also difficult to exclude as the urinary bladder was not distended. 3. CT abdomen and pelvis otherwise essentially unremarkable and unchanged from the previous examination except to note progressive degenerative disc disease at the lower thoracic spine with progressive hypertrophic degenerative changes also noted in that area anteriorly off vertebral bodies Report was called to Dr. Dockery at 1506 hours 09/04/2020. [facility]
[2020-09-04 22:50] VITALS: BP 153/100; PULSE 70
== END 2020-09-04 15:22 | disposition home or self-care (01) ==
LOC: FB.ED 13:43
DX: R10.9 Unspecified abdominal pain (principal); I10 Essential (primary) hypertension; J45.909 Unspecified asthma, uncomplicated; E66.9 Obesity, unspecified; Z68.41 Body mass index [BMI] 40.0-44.9, adult; Z88.1 Allergy status to other antibiotic agents; Z91.030 Bee allergy status; Z79.899 Other long term (current) drug therapy
CPT/HCPCS: 36415; 74176; 80048; 85025; 96372; 99283; 99284-25; J2060

== ENCOUNTER 2023-02-17 14:13 | Emergency (ER) | payer MEDICAID ==
[2023-02-17] MEDS ORDERED: Bacitracin Oint 1 GM U/D Packet TOP ONE (15:01)
[2023-02-17 15:11] VITALS: BP 186/105; PULSE 102
== END 2023-02-17 15:15 | disposition home or self-care (01) ==
LOC: FB.ED 14:13
DX: S67.192A Crushing injury of right middle finger, initial encounter (principal); S61.412A Laceration without foreign body of left hand, initial encounter; I10 Essential (primary) hypertension; F17.210 Nicotine dependence, cigarettes, uncomplicated; J45.909 Unspecified asthma, uncomplicated; Z79.899 Other long term (current) drug therapy; Z88.1 Allergy status to other antibiotic agents; Z88.7 Allergy status to serum and vaccine; W23.0XXA Caught, crushed, jammed, or pinched between moving objects, initial encounter
CPT/HCPCS: 73140-F7; 99283

== ENCOUNTER 2025-01-15 11:04 | Emergency (ER) | payer MEDICAID ==
[2025-01-15] MEDS: Ketorolac 30 MG/ML SDV IM STA (11:27)
[2025-01-15 12:54] VITALS: BP 187/143; PULSE 104
== END 2025-01-15 12:47 | disposition home or self-care (01) ==
LOC: FB.ED 11:04
DX: S10.93XA Contusion of unspecified part of neck, initial encounter (principal); I16.9 Hypertensive crisis, unspecified; I10 Essential (primary) hypertension; J45.909 Unspecified asthma, uncomplicated; K21.9 Gastro-esophageal reflux disease without esophagitis; F17.210 Nicotine dependence, cigarettes, uncomplicated; Z88.1 Allergy status to other antibiotic agents; Z91.030 Bee allergy status; W50.0XXA Accidental hit or strike by another person, initial encounter
CPT/HCPCS: 72040; 96372; 99283; A9270; J1885; 99284